=== PATIENT | male | born 1980 ===

== ENCOUNTER 2020-09-29 15:24 | Emergency (ER) | payer MEDICAID ==
[~2020-09-29] VITALS: Ht 165.1 cm; Wt 82.9 kg
[2020-09-29 15:39] VITALS: BP 141/76
--- NOTE | 2020-09-29 16:18 | NUR ---
TIM HOWARD AT BEDSIDE TO DISCUSS POC.
== END 2020-09-29 16:30 | disposition home or self-care (01) ==
LOC: ED 15:30
DX: T16.2XXA Foreign body in left ear, initial encounter (principal); F17.210 Nicotine dependence, cigarettes, uncomplicated; X58.XXXA Exposure to other specified factors, initial encounter; Y93.89 Activity, other specified; Y92.89 Other specified places as the place of occurrence of the external cause; Y99.8 Other external cause status
CPT/HCPCS: 69200; 99284; 99406